=== PATIENT | female | born 1995 ===

== ENCOUNTER 2021-03-10 13:12 | Inpatient (IN) | payer SELFPAY ==
--- NOTE | 2021-03-10 13:32 | Emergency Department Report ---
ED Shortness of Breath HPI - General Stated Complaint: VIVI/FEVER Time Seen by Provider: 03/10/21 13:22 - History of Present Illness Initial Comments: Patient presented secondary to shortness of breath with fever. She has been sick for the last 2 to 3 days. She has shortness of breath, fever, cough, congestion, and generalized malaise. She actually passed out today and was found unresponsive. O2 saturations were in the 70s. Patient came in for james luation and treatment because of this. They have no known exposure to coronavirus. Patient has no history of recent trauma. Her is also ill with similar symptoms. - Related Data Allergies Allergy/AdvReac Type Severity Reaction Status Date / Time No Known Allergies Allergy Unverified 03/10/21 14:07 ED Review of Systems ROS: Stated complaint: VIVI/FEVER Other details as noted in HPI Comment: All other systems reviewed and negative Constitutional: no symptoms reported, chills Eyes: denies: eye pain ENT: denies: throat pain Respiratory: no symptoms reported, cough Cardiovascular: denies: chest pain Endocrine: denies: unexplained weight loss Gastrointestinal: nausea, vomiting Genitourinary: denies: dysuria Musculoskeletal: denies: back pain Skin: denies: rash Neurological: denies: headache Hematological/Lymphatic: denies: easy bruising ED Past Medical Hx - Past Medical History Previous Medical History?: No - Family History Family history: no significant ED Physical Exam - General General appearance: alert, anxious, in distress (Tachypneic with a cough) - Head Head exam: Present: atraumatic, normocephalic, normal inspection - Eye Eye exam: Present: normal appearance, EOMI. Absent: scleral icterus - ENT ENT exam: Present: normal exam, normal orophraynx, mucous membranes moist - Neck Neck exam: Present: normal inspection, full ROM. Absent: meningismus - Respiratory Respiratory exam: Present: respiratory distress (Moderate with 1-2 word dyspnea and cough), accessory muscle use - Cardiovascular Cardiovascular Exam: Present: tachycardia - GI/Abdominal GI/Abdominal exam: Present: other (Flat) - Extremities Exam Extremities exam: Present: normal inspection - Back Exam Back exam: Present: normal inspection - Neurological Exam Neurological exam: Present: alert, oriented X3 - Psychiatric Psychiatric exam: Present: anxious - Skin Skin exam: Absent: cyanosis, diaphoretic ED Course Vital Signs 03/10/21 14:05 Temperature 98.0 F Pulse Rate 104 H Respiratory 44 H Rate Blood Pressure 93/61 [Right] O2 Sat by Pulse 99 Oximetry - Reevaluation(s) Reevaluation #1: 03/10/21 13:28 Patient was seen upon arrival. She was hypoxic and tachycardic. She was in respiratory distress. Sepsis protocol and coronavirus protocols were started. Albuterol neb, 10 mg, was ordered. Patient will need admission for likely coron avirus infection. Reevaluation #2: 03/10/21 14:21 EKG was noted. ED Medical Decision Making - Lab Data Result diagrams: 03/10/21 13:34 03/10/21 13:34 - EKG Data -: EKG Interpreted by Me EKG shows normal: intervals, QRS complexes, ST-T waves Rate: tachycardia - EKG Data When compared to previous EKG there are: previous EKG unavailable Interpretation: other (EKG shows sinus tachycardia with normal intervals. There is no ST elevation to suggest infarct. There is no ST depression suggestive of ischemia.) - Radiology Data Radiology results: image reviewed - Medical Decision Making Patient presented with shortness of breath and hypoxia. She had cough and GI symptoms. This does not seem to be consistent with coronavirus infection. She is hypoxic. As far as she is aware, she had not been vaccinated and neither had her . She does have ongoing hypoxia requiring respiratory support. She will undergo further admission and treatment. Dr. Land has been notified who agrees to admit. Radiographically, there is no obvious pneumothorax. She does not have evidence of STEMI or NSTEMI. She does not have evidence of congestive heart failure. I do not believe that she would benefit from CT at this point evaluating for pulmonary embolism. Respiratory can continue their protocols to maintain oxygenation. Critical Care Time: Yes Critical care attestation.: If time is entered above; I have spent that time in minutes in the direct care of this critically ill patient, excluding procedure time. Critical Care Time: Critical care time of 45 minutes exclusive of all procedures based on hypoxia and respiratory distress with features of sepsis. This is exclusive of all procedures. ED Disposition Clinical Impression: Hypoxia, Shortness of breath Disposition: ADMITTED INPATIENT Is pt being admited?: Yes Does the pt Need Aspirin: No Condition: Serious
[2021-03-10 14:17] LABS: Hemoglobin 14.2 gm/dl (10.1-14.3); Mean Corpuscular HGB Conc 35 % (30-34); Mean Corpuscular Volume 88 fl (79-97); Platelet Count 167 K/mm3 (140-440); Red Blood Count 4.65 M/mm3 (3.65-5.03); Red Cell Distribution Width 12.6 % (13.2-15.2)
[2021-03-10 14:22] LABS: Alanine Aminotransferase 31 units/L (7-56); Albumin 3.7 g/dL (3.9-5); Blood Urea Nitrogen 7 mg/dL (7-17); Calcium 8.2 mg/dL (8.4-10.2); Hemolysis Index 45
[2021-03-10 14:33] LABS: BUN/Creatinine Ratio 18
[2021-03-10 14:39] LABS: Basophils # (Auto) 0.1 K/mm3 (0.0-0.1); Basophils % (Auto) 2.3 % (0.0-1.8); Eosinophils % (Auto) 0.1 % (0.0-4.3); Lymphocytes # (Auto) 0.4 K/mm3 (1.2-5.4); Lymphocytes % (Auto) 8.2 % (13.4-35.0); Monocytes # (Auto) 0.4 K/mm3 (0.0-0.8); Monocytes % (Auto) 7.3 % (0.0-7.3)
[2021-03-10 14:43] LABS: C-Reactive Protein 4.4 mg/dL (0.00-1.30)
[2021-03-10] MEDS ORDERED: ONDANSETRON 4 MG/2 ML INJ IV ONE (15:00)
[2021-03-10] MEDS ORDERED: ALBUTEROL 2.5 MG/3 ML NEBU IH ONE (15:00)
[2021-03-10] MEDS ORDERED: SODIUM CHLORIDE 0.9% 500 ML 1,000 ML IV ONE (15:00)
--- NOTE | 2021-03-10 15:12 | History and Physical Report ---
History of Present Illness Chief complaint: I cannot breathe History of present illness: 25 YO Female with NO PMH presents to ED for evaluation. Patient reports "I cannot breathe". Patient states that she has experienced shortness of breath, fever, dry cough, decreased exercise tolerance, malaise, body aches, over the past 3 days with persistent and worsening symptoms over the same timeframe. Patient acknowledges feeling generalized weakness and experienced an episode of syncope today. Patient transported to [facility] via private vehicle for further care and evaluation of the aforementioned symptoms. The patient was seen and evaluated in the emergency department. All lab and imaging studies reviewed. Patient found to have a pulse oximetry in the 70s on room air which is consistent with acute hypoxemic respiratory failure. Patient underwent chest x- ray which revealed bilateral pneumonia. Patient admitted to medical floor and initiated on pneumonia protocol as well as coronavirus protocol. Patient denies chills, chest pain, palpitation, productive cough, skin rash, recent ill contacts. No prior admission for review. No medication listed at time of admission for reconciliation. Past History Past Medical History: No medical history Past Surgical History: No surgical history, Other (Reviewed) Social history: , lives with family. denies: smoking, alcohol abuse, prescription drug abuse Family history: no significant family history Medications and Allergies Allergies Allergy/AdvReac Type Severity Reaction Status Date / Time No Known Allergies Allergy Unverified 03/10/21 14:07 Active Meds: Active Medications Sodium Chloride (Nacl 0.9% 500 Ml) 1,000 mls @ 999 mls/hr IV ONCE ONE Stop: 03/10/21 16:00 Review of Systems Constitutional: fever, fatigue, weakness, malaise, lethargy, no weight loss, no weight gain, no chills Ears, nose, mouth and throat: no ear pain, no tinnitis, no decreased hearing, no nasal discharge Breasts: no change in shape, no swelling, no mass Cardiovascular: no chest pain, no orthopnea, no palpitations, no rapid/irregular heart beat, no syncope Respiratory: cough, shortness of breath Gastrointestinal: no abdominal pain, no nausea, no vomiting, no diarrhea Genitourinary Female: no pelvic pain, no flank pain, no dysuria, no urinary frequency, no urgency Rectal: no pain, no incontinence, no bleeding Musculoskeletal: no neck stiffness, no neck pain, no arm numbness/tingling, no low back pain, no redness of joints Integumentary: no rash, no sores, no jaundice, no blisters Neurological: no head injury, no paralysis, no weakness, no seizures, no syncope Psychiatric: no anxiety, no change in sleep habits, no hypersomnia, no change in appetite, no suicidal ideation Endocrine: no cold intolerance, no excessive thirst, no polydipsia, no polyuria, no flushing Hematologic/Lymphatic: no easy bruising, no lymphadenopathy Allergic/Immunologic: no allergic rhinitis, no persistent infections, no angioedema Exam - Constitutional Vitals: Temp Pulse Resp BP Pulse Ox 98.0 F 104 H 44 H 93/61 99 03/10/21 14:05 03/10/21 14:05 03/10/21 14:05 03/10/21 14:05 03/10/21 14:05 General appearance: Present: mild distress - EENT Eyes: Present: PERRL ENT: hearing intact, clear oral mucosa - Neck Neck: Present: supple, normal ROM - Respiratory Respiratory effort: normal, labored, accessory muscle use Respiratory: bilateral: diminished, rhonchi - Cardiovascular Heart Sounds: Present: S1 & S2. Absent: rub, click - Extremities Extremities: pulses symmetrical, No edema Peripheral Pulses: within normal limits - Abdominal General gastrointestinal: Present: soft, non-tender, non-distended, normal bowel sounds Female genitourinary: Present: normal - Integumentary Integumentary: Present: clear, warm, dry - Musculoskeletal Musculoskeletal: gait normal, strength equal bilaterally - Psychiatric Psychiatric: appropriate mood/affect, intact judgment & insight - Neurologic Neurologic: CNII-XII intact, moves all extremities HEART Score - HEART Score Troponin: Troponin T < 0.010 ng/mL (0.00-0.029) 03/10/21 13:34 Results - Labs CBC & Chem 7: 03/10/21 13:34 03/10/21 13:34 Labs: Abnormal lab results 03/10/21 03/10/21 03/10/21 Range/Units 13:34 13:34 13:34 MCHC 35 H (30-34) % RDW 12.6 L (13.2-15.2) % Lymph % (Auto) 8.2 L (13.4-35.0) % Baso % (Auto) 2.3 H (0.0-1.8) % Lymph # (Auto) 0.4 L (1.2-5.4) K/mm3 Seg Neutrophils % 82.1 H (40.0-70.0) % D-Dimer 465.09 H (0-234) ng/mlDDU Sodium 134 L (137-145) mmol/L Creatinine 0.4 L (0.6-1.2) mg/dL Glucose 118 H (65-100) mg/dL Calcium 8.2 L (8.4-10.2) mg/dL Ferritin (10.0-200.0) ng/mL AST 55 H (5-40) units/L Lactate Dehydrogenase 602 H (91-180) units/L C-Reactive Protein 4.40 H (0.00-1.30) mg/dL Albumin 3.7 L (3.9-5) g/dL 03/10/21 03/10/21 Range/Units 13:34 13:34 MCHC (30-34) % RDW (13.2-15.2) % Lymph % (Auto) (13.4-35.0) % Baso % (Auto) (0.0-1.8) % Lymph # (Auto) (1.2-5.4) K/mm3 Seg Neutrophils % (40.0-70.0) % D-Dimer (0-234) ng/mlDDU Sodium (137-145) mmol/L Creatinine (0.6-1.2) mg/dL Glucose 115 H (65-100) mg/dL Calcium (8.4-10.2) mg/dL Ferritin 448.0 H (10.0-200.0) ng/mL AST (5-40) units/L Lactate Dehydrogenase 539 H (91-180) units/L C-Reactive Protein 4.40 H (0.00-1.30) mg/dL Albumin (3.9-5) g/dL Assessment and Plan - Patient Problems (1) Acute respiratory failure Current Visit: Yes Status: Acute Qualifiers: Respiratory failure complication: hypoxia Qualified Code(s): J96.01 - Acute respiratory failure with hypoxia Plan to address problem: Chest x-ray, supplemental oxygen, pulse oximetry, nebulizer therapy, pulmonary toilet. (2) Pneumonia Current Visit: Yes Status: Acute Plan to address problem: Pneumonia protocol: Chest x-ray, CBC, CMP, IV antibiotic therapy, supplemental oxygen, pulse oximetry, nebulizer therapy, blood culture. (3) Suspected 2019 novel coronavirus infection Current Visit: Yes Status: Acute Plan to address problem: Coronavirus protocol: Contact precautions, isolation precautions, IV steroid therapy, IV antibiotic therapy, vitamin C therapy, vitamin D therapy, zinc therapy, prophylactic anticoagulation, prone positioning while in bed. (4) DVT prophylaxis Current Visit: Yes Status: Acute Plan to address problem: SCD to bilateral lower extremities while in bed, prophylactic anticoagulation
[2021-03-10] MEDS ORDERED: dexAMETHasone 20 MG/5 ML VIAL IV ONE (15:15)
--- NOTE | 2021-03-10 15:17 | XRay Report ---
CHEST 1 VIEW 03/10/2021 2:10 PM INDICATION / CLINICAL INFORMATION: hypoxia, covid. COMPARISON: None available. FINDINGS: SUPPORT DEVICES: None. HEART / MEDIASTINUM: No significant abnormality. LUNGS / PLEURA: Mild patchy bilateral opacities. No pneumothorax. ADDITIONAL FINDINGS: No significant additional findings. IMPRESSION: 1. Mild patchy bilateral pulmonary opacities likely indicating multifocal pneumonia. Signer Name: Flakito Law MD Signed: 03/10/2021 3:12 PM Workstation Name: [id number]
[2021-03-10] MEDS ORDERED: ONDANSETRON 4 MG/2 ML INJ IV PRN (16:00)
[2021-03-10] MEDS ORDERED: ALBUTEROL 2.5 MG/3 ML NEBU IH PRN (16:00)
[2021-03-10] MEDS ORDERED: HYDROmorphone 1 MG/1 ML INJ IV PRN (16:00)
[2021-03-10] MEDS ORDERED: ACETAMINOPHEN 325 MG TAB PO PRN (16:00)
[2021-03-10] MEDS: AZITHROMYCIN/NS 500 MG/250 ML 500 MG/250 ML BAG IV SCH (20:01)
[2021-03-10] MEDS: cefTRIAXone/NS 2 GM/100 ML 2 GM/100 ML BAG IV SCH (20:01)
[2021-03-10] MEDS: HEPARIN 5,000 UNIT/1 ML VIAL SUB-Q SCH (22:56)
[2021-03-10] MEDS: ZINC SULFATE 220 MG CAP PO SCH (22:57)
[2021-03-10] MEDS: methylPREDNISolone Sod Succinate 40 MG/1 ML INJ IV SCH (22:57)
[2021-03-10] MEDS: ASCORBIC ACID 500 MG TAB PO SCH (22:57)
[2021-03-11 06:35] LABS: Basophils % (Auto) 0.3 % (0.0-1.8); Hemoglobin 13.3 gm/dl (10.1-14.3); Lymphocytes # (Auto) 0.5 K/mm3 (1.2-5.4); Lymphocytes % (Auto) 20.3 % (13.4-35.0); Mean Corpuscular HGB Conc 36 % (30-34); Mean Corpuscular Volume 87 fl (79-97); Monocytes # (Auto) 0.2 K/mm3 (0.0-0.8); Monocytes % (Auto) 8.3 % (0.0-7.3); Platelet Count 191 K/mm3 (140-440); Red Blood Count 4.24 M/mm3 (3.65-5.03); Red Cell Distribution Width 12.7 % (13.2-15.2)
[2021-03-11 06:54] LABS: Blood Urea Nitrogen 6 mg/dL (7-17); Hemolysis Index 3
[2021-03-11] MEDS: methylPREDNISolone Sod Succinate 40 MG/1 ML INJ IV SCH ×3 (06:54→22:00)
[2021-03-11 07:03] LABS: BUN/Creatinine Ratio 15
[2021-03-11] MEDS: ASCORBIC ACID 500 MG TAB PO SCH ×2 (09:53→22:01)
[2021-03-11] MEDS: CHOLECALCIFEROL (VIT D3) 1000 UNIT (25 mcg) TAB PO SCH (09:54)
[2021-03-11] MEDS: ZINC SULFATE 220 MG CAP PO SCH ×2 (09:54→22:01)
[2021-03-11] MEDS: HEPARIN 5,000 UNIT/1 ML VIAL SUB-Q SCH ×2 (09:55→22:00)
[2021-03-11] MEDS ORDERED: CHOLECALCIFEROL (VIT D3) 400 UNIT TAB PO SCH (10:00)
--- NOTE | 2021-03-11 10:10 | Electrocardiograph Report ---
[facility] Test Date: 2021-03-10 Test Time: 13:40:55 Pat Name: DILEEP TURPIN Department: Room: A380 Gender: F Addiction Social Worker: EDGARD : 1995 Requested By: KERVIN BECKER Order Number: [id number] Reading MD: Josephine Geller Measurements Intervals [place] Rate: 109 P: 58 NH: 190 QRS: 13 QRSD: 75 T: 16 QT: 302 QTc: 408 Interpretive Statements Sinus tachycardia Probable left atrial enlargement Low voltage, precordial leads No previous ECG available for comparison Electronically Signed On 03-11-2021 10:10:37 EDT by Josephine Geller
[2021-03-11 13:42] LABS: Bilirubin,Urine NEG (Negative); Blood,Urine MOD (Negative); Color,Urine Yellow (Yellow); Mucus,Urine FEW /HPF
[2021-03-11] MEDS: AZITHROMYCIN/NS 500 MG/250 ML 500 MG/250 ML BAG IV SCH (17:03)
[2021-03-11] MEDS: cefTRIAXone/NS 2 GM/100 ML 2 GM/100 ML BAG IV SCH (17:05)
--- NOTE | 2021-03-11 20:57 | Progress Note ---
Assessment and Plan - Patient Problems (1) Acute respiratory failure Current Visit: Yes Status: Acute Qualifiers: Respiratory failure complication: hypoxia Qualified Code(s): J96.01 - Acute respiratory failure with hypoxia Plan to address problem: Chest x-ray, supplemental oxygen, pulse oximetry, nebulizer therapy, pulmonary toilet. (2) Pneumonia Current Visit: Yes Status: Acute Plan to address problem: Pneumonia protocol: Chest x-ray, CBC, CMP, IV antibiotic therapy, supplemental oxygen, pulse oximetry, nebulizer therapy, blood culture. (3) Suspected 2019 novel coronavirus infection Current Visit: Yes Status: Acute Plan to address problem: Coronavirus protocol: Contact precautions, isolation precautions, IV steroid therapy, IV antibiotic therapy, vitamin C therapy, vitamin D therapy, zinc therapy, prophylactic anticoagulation, prone positioning while in bed. (4) DVT prophylaxis Current Visit: Yes Status: Acute Plan to address problem: SCD to bilateral lower extremities while in bed, prophylactic anticoagulation History Interval history: 25 YO Female HD #2 with Acute Respiratory Failure, Pneumonia, Suspected Coronavirus infection. Patient resting comfortably in bed. No reported nursing events. Patient denies pain. Hospitalist Physical - Constitutional Vitals: Temp Pulse Resp BP Pulse Ox 98.3 F 77 22 104/61 89 03/11/21 17:58 03/11/21 17:58 03/11/21 17:58 03/11/21 17:58 03/11/21 17:58 General appearance: Present: mild distress, obese - EENT Eyes: Present: PERRL, EOM intact ENT: hearing intact - Neck Neck: Present: supple - Respiratory Respiratory: bilateral: diminished, rhonchi - Cardiovascular Rhythm: regular Heart Sounds: Present: S1 & S2 - Extremities Extremities: no ischemia Peripheral Pulses: within normal limits - Abdominal General gastrointestinal: soft, non-tender, non-distended - Integumentary Integumentary: Present: clear, dry - Psychiatric Psychiatric: appropriate mood/affect, cooperative - Neurologic Neurologic: CNII-XII intact HEART Score - HEART Score Troponin: Troponin T < 0.010 ng/mL (0.00-0.029) 03/10/21 13:34 Results - Labs CBC & Chem 7: 03/11/21 05:22 03/11/21 05:22 Labs: Laboratory Last Values WBC 2.4 K/mm3 (4.5-11.0) L 03/11/21 05:22 RBC 4.24 M/mm3 (3.65-5.03) 03/11/21 05:22 Hgb 13.3 gm/dl (10.1-14.3) 03/11/21 05:22 Hct 37.0 % (30.3-42.9) 03/11/21 05:22 MCV 87 fl (79-97) 03/11/21 05:22 MCH 31 pg (28-32) 03/11/21 05:22 MCHC 36 % (30-34) H 03/11/21 05:22 RDW 12.7 % (13.2-15.2) L 03/11/21 05:22 Plt Count 191 K/mm3 (140-440) 03/11/21 05:22 Lymph % (Auto) 20.3 % (13.4-35.0) 03/11/21 05:22 [place] % (Auto) 8.3 % (0.0-7.3) H 03/11/21 05:22 Eos % (Auto) 0.0 % (0.0-4.3) 03/11/21 05:22 Baso % (Auto) 0.3 % (0.0-1.8) 03/11/21 05:22 Lymph # (Auto) 0.5 K/mm3 (1.2-5.4) L 03/11/21 05:22 [place] # (Auto) 0.2 K/mm3 (0.0-0.8) 03/11/21 05:22 Eos # (Auto) 0.0 K/mm3 (0.0-0.4) 03/11/21 05:22 Baso # (Auto) 0.0 K/mm3 (0.0-0.1) 03/11/21 05:22 Seg Neutrophils % 71.1 % (40.0-70.0) H 03/11/21 05:22 Nucleated RBC % Not Reportable 03/10/21 13:34 Seg Neutrophils # 1.7 K/mm3 (1.8-7.7) L 03/11/21 05:22 WBC Morphology Not Reportable 03/10/21 13:34 Hypersegmented Neuts Not Reportable 03/10/21 13:34 Hyposegmented Neuts Not Reportable 03/10/21 13:34 Hypogranular Neuts Not Reportable 03/10/21 13:34 Smudge Cells Not Reportable 03/10/21 13:34 Toxic Granulation Not Reportable 03/10/21 13:34 Toxic Vacuolation Not Reportable 03/10/21 13:34 Dohle Bodies Not Reportable 03/10/21 13:34 Pelger-Huet Anomaly Not Reportable 03/10/21 13:34 Nicola Rods Not Reportable 03/10/21 13:34 Platelet Estimate Not Reportable 03/10/21 13:34 Clumped Platelets Not Reportable 03/10/21 13:34 Plt Clumps, EDTA Not Reportable 03/10/21 13:34 Large Platelets Not Reportable 03/10/21 13:34 Giant Platelets Not Reportable 03/10/21 13:34 Platelet Satelliting Not Reportable 03/10/21 13:34 Plt Morphology Comment Not Reportable 03/10/21 13:34 RBC Morphology Not Reportable 03/10/21 13:34 Dimorphic RBCs Not Reportable 03/10/21 13:34 Polychromasia Not Reportable 03/10/21 13:34 Hypochromasia Not Reportable 03/10/21 13:34 Poikilocytosis Not Reportable 03/10/21 13:34 Anisocytosis Not Reportable 03/10/21 13:34 Microcytosis Not Reportable 03/10/21 13:34 Macrocytosis Not Reportable 03/10/21 13:34 Spherocytes Not Reportable 03/10/21 13:34 Pappenheimer Bodies Not Reportable 03/10/21 13:34 Sickle Cells Not Reportable 03/10/21 13:34 Target Cells Not Reportable 03/10/21 13:34 Tear Drop Cells Not Reportable 03/10/21 13:34 Ovalocytes Not Reportable 03/10/21 13:34 Helmet Cells Not Reportable 03/10/21 13:34 Lombardi-[place] Bodies Not Reportable 03/10/21 13:34 [place] Rings Not Reportable 03/10/21 13:34 Stoney Cells Not Reportable 03/10/21 13:34 Bite Cells Not Reportable 03/10/21 13:34 Crenated Cell Not Reportable 03/10/21 13:34 Elliptocytes Not Reportable 03/10/21 13:34 Acanthocytes (Spur) Not Reportable 03/10/21 13:34 Rouleaux Not Reportable 03/10/21 13:34 Hemoglobin C Crystals Not Reportable 03/10/21 13:34 Schistocytes Not Reportable 03/10/21 13:34 Malaria parasites Not Reportable 03/10/21 13:34 Malachi Bodies Not Reportable 03/10/21 13:34 Hem Pathologist Commnt Not Reportable 03/10/21 13:34 D-Dimer 465.09 ng/mlDDU (0-234) H 03/10/21 13:34 Sodium 141 mmol/L (137-145) D 03/11/21 05:22 Potassium 4.2 mmol/L (3.6-5.0) 03/11/21 05:22 Chloride 106.5 mmol/L (98-107) 03/11/21 05:22 Carbon Dioxide 24 mmol/L (22-30) 03/11/21 05:22 Anion Gap 15 mmol/L 03/11/21 05:22 BUN 6 mg/dL (7-17) L 03/11/21 05:22 Creatinine 0.4 mg/dL (0.6-1.2) L 03/11/21 05:22 Estimated GFR > 60 ml/min 03/11/21 05:22 BUN/Creatinine Ratio 15 % 03/11/21 05:22 Glucose 159 mg/dL (65-100) H 03/11/21 05:22 Lactic Acid 1.00 mmol/L (0.7-2.0) 03/10/21 16:17 Calcium 9.0 mg/dL (8.4-10.2) 03/11/21 05:22 Ferritin 448.0 ng/mL (10.0-200.0) H 03/10/21 13:34 Total Bilirubin 0.50 mg/dL (0.1-1.2) 03/10/21 13:34 AST 55 units/L (5-40) H 03/10/21 13:34 ALT 31 units/L (7-56) 03/10/21 13:34 Alkaline Phosphatase 125 units/L (35-129) 03/10/21 13:34 Lactate Dehydrogenase 539 units/L (91-180) H 03/10/21 13:34 Lactate Dehydrogenase 602 units/L (91-180) H 03/10/21 13:34 Troponin T < 0.010 ng/mL (0.00-0.029) 03/10/21 13:34 C-Reactive Protein 4.40 mg/dL (0.00-1.30) H 03/10/21 13:34 C-Reactive Protein 4.40 mg/dL (0.00-1.30) H 03/10/21 13:34 Total Protein 7.6 g/dL (6.3-8.2) 03/10/21 13:34 Albumin 3.7 g/dL (3.9-5) L 03/10/21 13:34 Albumin/Globulin Ratio 0.9 % 03/10/21 13:34 Procalcitonin 0.11 ng/mL (<0.15) 03/10/21 13:34 Urine Color Yellow (Yellow) 03/11/21 12:25 Urine Turbidity Clear (Clear) 03/11/21 12:25 Urine pH 6.0 (5.0-7.0) 03/11/21 12:25 Ur Specific [place] 1.019 (1.003-1.030) 03/11/21 12:25 Urine Protein 30 mg/dl mg/dL (Negative) 03/11/21 12:25 Urine Glucose (UA) Neg mg/dL (Negative) 03/11/21 12:25 Urine Ketones Neg mg/dL (Negative) 03/11/21 12:25 Urine Blood Mod (Negative) 03/11/21 12:25 Urine Nitrite Neg (Negative) 03/11/21 12:25 Urine Bilirubin Neg (Negative) 03/11/21 12:25 Urine Urobilinogen 4.0 mg/dL (<2.0) 03/11/21 12:25 Ur Leukocyte Esterase Neg (Negative) 03/11/21 12:25 Urine WBC (Auto) 2.0 /HPF (0.0-6.0) 03/11/21 12:25 Urine RBC (Auto) 47.0 /HPF (0.0-6.0) 03/11/21 12:25 U Epithel Cells (Auto) < 1.0 /HPF (0-13.0) 03/11/21 12:25 Urine Mucus Few /HPF 03/11/21 12:25 Microbiology: Microbiology 03/10/21 13:41 Peripheral/Venous Blood Culture - Preliminary NO GROWTH AFTER 24 HOURS 03/10/21 13:34 Peripheral/Venous Blood Culture - Preliminary NO GROWTH AFTER 24 HOURS Sheikh/IV: Voiding Method Toilet Active Medications - Current Medications Current Medications: Generic Name Dose Route Start Last Admin Trade Name Freq PRN Reason Stop Dose Admin Acetaminophen 650 mg 03/10/21 16:00 Acetaminophen 325 Mg Tab PO Q4H PRN Pain MILD(1-3)/Fever >100.5/LEE Albuterol 2.5 mg 03/10/21 16:00 Albuterol 2.5 Mg/3 Ml Nebu IH Q4HRT PRN Shortness Of Breath Ascorbic Acid 500 mg 03/10/21 22:00 03/11/21 09:53 Ascorbic Acid 500 Mg Tab PO 500 mg BID NYDIA Administration Cholecalciferol 1,000 unit 03/11/21 10:00 03/11/21 09:54 Cholecalciferol (Vit D3) 1000 Unit (25 Mcg) Tab PO 1,000 unit DAILY NYDIA Administration Heparin Sodium (Porcine) 5,000 unit 03/10/21 22:00 03/11/21 09:55 Heparin 5,000 Unit/1 Ml Vial SUB-Q 5,000 unit Q12HR NYDIA Administration Hydromorphone HCl 0.5 mg 03/10/21 16:00 Hydromorphone 1 Mg/1 Ml Inj IV Q24H PRN Pain , Severe (7-10) Ceftriaxone Sodium 2 gm in 100 mls @ 200 mls/hr 03/10/21 17:00 03/11/21 17:05 Rocephin/Ns 2 Gm/100 Ml IV 03/14/21 17:29 200 mls/hr Q24H NYDIA Administration Protocol Azithromycin 500 mg in 250 mls @ 250 mls/hr 03/10/21 16:00 03/11/21 17:03 Zithromax/Ns IV 03/14/21 16:59 250 mls/hr Q24H NYDIA Administration Protocol Methylprednisolone Sodium Succinate 40 mg 03/10/21 22:00 03/11/21 14:50 Methylprednisolone Sod Succinate 40 Mg/1 Ml Inj IV 40 mg Q8HR NYDIA Administration Ondansetron HCl 4 mg 03/10/21 16:00 Ondansetron 4 Mg/2 Ml Inj IV Q8H PRN Nausea And Vomiting Oxycodone/Acetaminophen 1 tab 03/10/21 16:00 Oxycodone /Acetaminophen 5-325mg Tab PO Q12H PRN Pain, Moderate (4-6) Sodium Chloride 10 ml 03/10/21 22:00 03/11/21 09:54 Sodium Chloride 0.9% 10 Ml Flush Syringe IV 10 ml BID NYDIA Administration Sodium Chloride 10 ml 03/10/21 16:00 Sodium Chloride 0.9% 10 Ml Flush Syringe IV PRN PRN LINE FLUSH Zinc Sulfate 220 mg 03/10/21 22:00 03/11/21 09:54 Zinc Sulfate 220 Mg Cap PO 220 mg BID NYDIA Administration
[2021-03-12] MEDS: methylPREDNISolone Sod Succinate 40 MG/1 ML INJ IV SCH ×3 (06:15→21:13)
[2021-03-12] MEDS: ZINC SULFATE 220 MG CAP PO SCH ×2 (12:24→21:13)
[2021-03-12] MEDS: ASCORBIC ACID 500 MG TAB PO SCH ×2 (12:24→21:13)
[2021-03-12] MEDS: HEPARIN 5,000 UNIT/1 ML VIAL SUB-Q SCH ×2 (12:25→21:14)
[2021-03-12] MEDS: oxyCODONE /ACETAMINOPHEN 5-325MG TAB PO PRN (12:26)
[2021-03-12] MEDS: CHOLECALCIFEROL (VIT D3) 1000 UNIT (25 mcg) TAB PO SCH (12:26)
[2021-03-12] MEDS: cefTRIAXone/NS 2 GM/100 ML 2 GM/100 ML BAG IV SCH (18:00)
[2021-03-12] MEDS: AZITHROMYCIN/NS 500 MG/250 ML 500 MG/250 ML BAG IV SCH (20:00)
[2021-03-13] MEDS: methylPREDNISolone Sod Succinate 40 MG/1 ML INJ IV SCH ×3 (05:52→22:24)
[2021-03-13] MEDS: HEPARIN 5,000 UNIT/1 ML VIAL SUB-Q SCH ×2 (09:26→22:25)
[2021-03-13] MEDS: ZINC SULFATE 220 MG CAP PO SCH ×2 (09:26→22:24)
[2021-03-13] MEDS: ASCORBIC ACID 500 MG TAB PO SCH ×2 (09:26→22:25)
[2021-03-13] MEDS: CHOLECALCIFEROL (VIT D3) 1000 UNIT (25 mcg) TAB PO SCH (09:26)
--- NOTE | 2021-03-13 12:47 | Progress Note ---
Assessment and Plan - Patient Problems (1) Acute respiratory failure Current Visit: Yes Status: Acute Qualifiers: Respiratory failure complication: hypoxia Qualified Code(s): J96.01 - Acute respiratory failure with hypoxia Plan to address problem: Chest x-ray, supplemental oxygen, pulse oximetry, nebulizer therapy, pulmonary toilet. ambulatory oxygen saturation. (2) Pneumonia Current Visit: Yes Status: Acute Plan to address problem: Pneumonia protocol: Chest x-ray, CBC, CMP, IV antibiotic therapy, supplemental oxygen, pulse oximetry, nebulizer therapy, blood culture. (3) Suspected 2019 novel coronavirus infection Current Visit: Yes Status: Acute Plan to address problem: Coronavirus protocol: Contact precautions, isolation precautions, IV steroid therapy, IV antibiotic therapy, vitamin C therapy, vitamin D therapy, zinc therapy, prophylactic anticoagulation, prone positioning while in bed. (4) DVT prophylaxis Current Visit: Yes Status: Acute Plan to address problem: SCD to bilateral lower extremities while in bed, prophylactic anticoagulation History Interval history: 25 YO Female HD #3 with Acute Respiratory Failure, Pneumonia, Suspected [place] virus infection. Patient resting comfortably in bed. No reported nursing events. Patient denies pain. Hospitalist Physical - Constitutional Vitals: Temp Pulse Resp BP Pulse Ox 98.1 F 60 20 100/57 94 03/13/21 04:38 03/13/21 04:38 03/13/21 07:00 03/13/21 04:38 03/13/21 07:00 General appearance: Present: mild distress, obese - EENT Eyes: Present: PERRL, EOM intact - Neck Neck: Present: supple - Respiratory Respiratory effort: labored Respiratory: bilateral: diminished, rhonchi - Cardiovascular Rhythm: regular Heart Sounds: Present: S1 & S2 - Extremities Extremities: no ischemia Peripheral Pulses: within normal limits - Abdominal General gastrointestinal: soft, non-tender, non-distended - Integumentary Integumentary: Present: clear, erythema - Psychiatric Psychiatric: appropriate mood/affect, cooperative - Neurologic Neurologic: CNII-XII intact HEART Score - HEART Score Troponin: Troponin T < 0.010 ng/mL (0.00-0.029) 03/10/21 13:34 Results - Labs CBC & Chem 7: 03/11/21 05:22 03/11/21 05:22 Labs: Laboratory Last Values WBC 2.4 K/mm3 (4.5-11.0) L 03/11/21 05:22 RBC 4.24 M/mm3 (3.65-5.03) 03/11/21 05:22 Hgb 13.3 gm/dl (10.1-14.3) 03/11/21 05:22 Hct 37.0 % (30.3-42.9) 03/11/21 05:22 MCV 87 fl (79-97) 03/11/21 05:22 MCH 31 pg (28-32) 03/11/21 05:22 MCHC 36 % (30-34) H 03/11/21 05:22 RDW 12.7 % (13.2-15.2) L 03/11/21 05:22 Plt Count 191 K/mm3 (140-440) 03/11/21 05:22 Lymph % (Auto) 20.3 % (13.4-35.0) 03/11/21 05:22 [place] % (Auto) 8.3 % (0.0-7.3) H 03/11/21 05:22 Eos % (Auto) 0.0 % (0.0-4.3) 03/11/21 05:22 Baso % (Auto) 0.3 % (0.0-1.8) 03/11/21 05:22 Lymph # (Auto) 0.5 K/mm3 (1.2-5.4) L 03/11/21 05:22 [place] # (Auto) 0.2 K/mm3 (0.0-0.8) 03/11/21 05:22 Eos # (Auto) 0.0 K/mm3 (0.0-0.4) 03/11/21 05:22 Baso # (Auto) 0.0 K/mm3 (0.0-0.1) 03/11/21 05:22 Seg Neutrophils % 71.1 % (40.0-70.0) H 03/11/21 05:22 Nucleated RBC % Not Reportable 03/10/21 13:34 Seg Neutrophils # 1.7 K/mm3 (1.8-7.7) L 03/11/21 05:22 WBC Morphology Not Reportable 03/10/21 13:34 Hypersegmented Neuts Not Reportable 03/10/21 13:34 Hyposegmented Neuts Not Reportable 03/10/21 13:34 Hypogranular Neuts Not Reportable 03/10/21 13:34 Smudge Cells Not Reportable 03/10/21 13:34 Toxic Granulation Not Reportable 03/10/21 13:34 Toxic Vacuolation Not Reportable 03/10/21 13:34 Dohle Bodies Not Reportable 03/10/21 13:34 Pelger-Huet Anomaly Not Reportable 03/10/21 13:34 Nicola Rods Not Reportable 03/10/21 13:34 Platelet Estimate Not Reportable 03/10/21 13:34 Clumped Platelets Not Reportable 03/10/21 13:34 Plt Clumps, EDTA Not Reportable 03/10/21 13:34 Large Platelets Not Reportable 03/10/21 13:34 Giant Platelets Not Reportable 03/10/21 13:34 Platelet Satelliting Not Reportable 03/10/21 13:34 Plt Morphology Comment Not Reportable 03/10/21 13:34 RBC Morphology Not Reportable 03/10/21 13:34 Dimorphic RBCs Not Reportable 03/10/21 13:34 Polychromasia Not Reportable 03/10/21 13:34 Hypochromasia Not Reportable 03/10/21 13:34 Poikilocytosis Not Reportable 03/10/21 13:34 Anisocytosis Not Reportable 03/10/21 13:34 Microcytosis Not Reportable 03/10/21 13:34 Macrocytosis Not Reportable 03/10/21 13:34 Spherocytes Not Reportable 03/10/21 13:34 Pappenheimer Bodies Not Reportable 03/10/21 13:34 Sickle Cells Not Reportable 03/10/21 13:34 Target Cells Not Reportable 03/10/21 13:34 Tear Drop Cells Not Reportable 03/10/21 13:34 Ovalocytes Not Reportable 03/10/21 13:34 Helmet Cells Not Reportable 03/10/21 13:34 [place] Bodies Not Reportable 03/10/21 13:34 [place] Rings Not Reportable 03/10/21 13:34 [place] Cells Not Reportable 03/10/21 13:34 Bite Cells Not Reportable 03/10/21 13:34 Crenated Cell Not Reportable 03/10/21 13:34 Elliptocytes Not Reportable 03/10/21 13:34 Acanthocytes (Spur) Not Reportable 03/10/21 13:34 Rouleaux Not Reportable 03/10/21 13:34 Hemoglobin C Crystals Not Reportable 03/10/21 13:34 Schistocytes Not Reportable 03/10/21 13:34 Malaria parasites Not Reportable 03/10/21 13:34 Malachi Bodies Not Reportable 03/10/21 13:34 Hem Pathologist Commnt Not Reportable 03/10/21 13:34 D-Dimer 465.09 ng/mlDDU (0-234) H 03/10/21 13:34 Sodium 141 mmol/L (137-145) D 03/11/21 05:22 Potassium 4.2 mmol/L (3.6-5.0) 03/11/21 05:22 Chloride 106.5 mmol/L (98-107) 03/11/21 05:22 Carbon Dioxide 24 mmol/L (22-30) 03/11/21 05:22 Anion Gap 15 mmol/L 03/11/21 05:22 BUN 6 mg/dL (7-17) L 03/11/21 05:22 Creatinine 0.4 mg/dL (0.6-1.2) L 03/11/21 05:22 Estimated GFR > 60 ml/min 03/11/21 05:22 BUN/Creatinine Ratio 15 % 03/11/21 05:22 Glucose 159 mg/dL (65-100) H 03/11/21 05:22 Lactic Acid 1.00 mmol/L (0.7-2.0) 03/10/21 16:17 Calcium 9.0 mg/dL (8.4-10.2) 03/11/21 05:22 Ferritin 448.0 ng/mL (10.0-200.0) H 03/10/21 13:34 Total Bilirubin 0.50 mg/dL (0.1-1.2) 03/10/21 13:34 AST 55 units/L (5-40) H 03/10/21 13:34 ALT 31 units/L (7-56) 03/10/21 13:34 Alkaline Phosphatase 125 units/L (35-129) 03/10/21 13:34 Lactate Dehydrogenase 539 units/L (91-180) H 03/10/21 13:34 Lactate Dehydrogenase 602 units/L (91-180) H 03/10/21 13:34 Troponin T < 0.010 ng/mL (0.00-0.029) 03/10/21 13:34 C-Reactive Protein 4.40 mg/dL (0.00-1.30) H 03/10/21 13:34 C-Reactive Protein 4.40 mg/dL (0.00-1.30) H 03/10/21 13:34 Total Protein 7.6 g/dL (6.3-8.2) 03/10/21 13:34 Albumin 3.7 g/dL (3.9-5) L 03/10/21 13:34 Albumin/Globulin Ratio 0.9 % 03/10/21 13:34 Procalcitonin 0.11 ng/mL (<0.15) 03/10/21 13:34 Urine Color Yellow (Yellow) 03/11/21 12:25 Urine Turbidity Clear (Clear) 03/11/21 12:25 Urine pH 6.0 (5.0-7.0) 03/11/21 12:25 Ur Specific [place] 1.019 (1.003-1.030) 03/11/21 12:25 Urine Protein 30 mg/dl mg/dL (Negative) 03/11/21 12:25 Urine Glucose (UA) Neg mg/dL (Negative) 03/11/21 12:25 Urine Ketones Neg mg/dL (Negative) 03/11/21 12:25 Urine Blood Mod (Negative) 03/11/21 12:25 Urine Nitrite Neg (Negative) 03/11/21 12:25 Urine Bilirubin Neg (Negative) 03/11/21 12:25 Urine Urobilinogen 4.0 mg/dL (<2.0) 03/11/21 12:25 Ur Leukocyte Esterase Neg (Negative) 03/11/21 12:25 Urine WBC (Auto) 2.0 /HPF (0.0-6.0) 03/11/21 12:25 Urine RBC (Auto) 47.0 /HPF (0.0-6.0) 03/11/21 12:25 U Epithel Cells (Auto) < 1.0 /HPF (0-13.0) 03/11/21 12:25 Urine Mucus Few /HPF 03/11/21 12:25 Microbiology: Microbiology 03/10/21 13:41 Peripheral/Venous Blood Culture - Preliminary NO GROWTH AFTER 48 HOURS 03/10/21 13:34 Peripheral/Venous Blood Culture - Preliminary NO GROWTH AFTER 48 HOURS Sheikh/IV: Voiding Method Toilet Active Medications - Current Medications Current Medications: Generic Name Dose Route Start Last Admin Trade Name Freq PRN Reason Stop Dose Admin Acetaminophen 650 mg 03/10/21 16:00 Acetaminophen 325 Mg Tab PO Q4H PRN Pain MILD(1-3)/Fever >100.5/LEE Albuterol 2.5 mg 03/10/21 16:00 Albuterol 2.5 Mg/3 Ml Nebu IH Q4HRT PRN Shortness Of Breath Ascorbic Acid 500 mg 03/10/21 22:00 03/13/21 09:26 Ascorbic Acid 500 Mg Tab PO 500 mg BID NYDIA Administration Cholecalciferol 1,000 unit 03/11/21 10:00 03/13/21 09:26 Cholecalciferol (Vit D3) 1000 Unit (25 Mcg) Tab PO 1,000 unit DAILY NYDIA Administration Heparin Sodium (Porcine) 5,000 unit 03/10/21 22:00 03/13/21 09:26 Heparin 5,000 Unit/1 Ml Vial SUB-Q 5,000 unit Q12HR NYDIA Administration Hydromorphone HCl 0.5 mg 03/10/21 16:00 Hydromorphone 1 Mg/1 Ml Inj IV Q24H PRN Pain , Severe (7-10) Ceftriaxone Sodium 2 gm in 100 mls @ 200 mls/hr 03/10/21 17:00 03/12/21 18:00 Rocephin/Ns 2 Gm/100 Ml IV 03/14/21 17:29 200 mls/hr Q24H NYDIA Administration Protocol Azithromycin 500 mg in 250 mls @ 250 mls/hr 03/10/21 16:00 03/12/21 20:00 Zithromax/Ns IV 03/14/21 16:59 250 mls/hr Q24H NYDIA Administration Protocol Methylprednisolone Sodium Succinate 40 mg 03/10/21 22:00 03/13/21 05:52 Methylprednisolone Sod Succinate 40 Mg/1 Ml Inj IV 40 mg Q8HR NYDIA Administration Ondansetron HCl 4 mg 03/10/21 16:00 Ondansetron 4 Mg/2 Ml Inj IV Q8H PRN Nausea And Vomiting Oxycodone/Acetaminophen 1 tab 03/10/21 16:00 03/12/21 12:26 Oxycodone /Acetaminophen 5-325mg Tab PO 1 tab Q12H PRN Administration Pain, Moderate (4-6) Sodium Chloride 10 ml 03/10/21 22:00 03/13/21 09:26 Sodium Chloride 0.9% 10 Ml Flush Syringe IV 10 ml BID NYDIA Administration Sodium Chloride 10 ml 03/10/21 16:00 Sodium Chloride 0.9% 10 Ml Flush Syringe IV PRN PRN LINE FLUSH Zinc Sulfate 220 mg 03/10/21 22:00 03/13/21 09:26 Zinc Sulfate 220 Mg Cap PO 220 mg BID NYDIA Administration
[2021-03-13] MEDS: AZITHROMYCIN/NS 500 MG/250 ML 500 MG/250 ML BAG IV SCH (16:33)
[2021-03-13] MEDS: cefTRIAXone/NS 2 GM/100 ML 2 GM/100 ML BAG IV SCH (16:33)
[2021-03-13] MEDS: oxyCODONE /ACETAMINOPHEN 5-325MG TAB PO PRN (16:55)
[2021-03-14] MEDS: methylPREDNISolone Sod Succinate 40 MG/1 ML INJ IV SCH ×2 (05:45→14:07)
[2021-03-14] MEDS: ZINC SULFATE 220 MG CAP PO SCH (09:35)
[2021-03-14] MEDS: CHOLECALCIFEROL (VIT D3) 1000 UNIT (25 mcg) TAB PO SCH (09:35)
[2021-03-14] MEDS: ASCORBIC ACID 500 MG TAB PO SCH (09:35)
[2021-03-14] MEDS: HEPARIN 5,000 UNIT/1 ML VIAL SUB-Q SCH (09:35)
[2021-03-14 11:45] VITALS: BP 99/59
--- NOTE | 2021-03-14 12:10 | Progress Note ---
Assessment and Plan - Patient Problems (1) Acute respiratory failure Current Visit: Yes Status: Acute Qualifiers: Respiratory failure complication: hypoxia Qualified Code(s): J96.01 - Acute respiratory failure with hypoxia Plan to address problem: Chest x-ray, supplemental oxygen, pulse oximetry, nebulizer therapy, pulmonary toilet. ambulatory oxygen saturation. (2) Pneumonia Current Visit: Yes Status: Acute Plan to address problem: Pneumonia protocol: Chest x-ray, CBC, CMP, IV antibiotic therapy, supplemental oxygen, pulse oximetry, nebulizer therapy, blood culture. (3) Suspected 2019 novel coronavirus infection Current Visit: Yes Status: Acute Plan to address problem: Coronavirus protocol: Contact precautions, isolation precautions, IV steroid therapy, IV antibiotic therapy, vitamin C therapy, vitamin D therapy, zinc therapy, prophylactic anticoagulation, prone positioning while in bed. (4) DVT prophylaxis Current Visit: Yes Status: Acute Plan to address problem: SCD to bilateral lower extremities while in bed, prophylactic anticoagulation History Interval history: 25 YO Female HD #4 with Acute Respiratory Failure, Pneumonia, Suspected [place] virus infection. Patient resting comfortably in bed. No reported nursing events. Patient denies pain. Hospitalist Physical - Constitutional Vitals: Temp Pulse Resp BP Pulse Ox 97.6 F 57 L 18 99/59 92 03/14/21 11:12 03/14/21 11:12 03/14/21 11:12 03/14/21 11:12 03/14/21 11:12 General appearance: Present: mild distress, obese - EENT Eyes: Present: PERRL, EOM intact ENT: hearing intact - Neck Neck: Present: supple - Respiratory Respiratory effort: labored Respiratory: bilateral: diminished - Cardiovascular Rhythm: regular Heart Sounds: Present: S1 & S2 Peripheral Pulses: within normal limits - Abdominal General gastrointestinal: soft, non-tender, non-distended - Integumentary Integumentary: Present: clear, dry - Psychiatric Psychiatric: appropriate mood/affect - Neurologic Neurologic: CNII-XII intact HEART Score - HEART Score Troponin: Troponin T < 0.010 ng/mL (0.00-0.029) 03/10/21 13:34 Results - Labs CBC & Chem 7: 03/11/21 05:22 03/11/21 05:22 Labs: Laboratory Last Values WBC 2.4 K/mm3 (4.5-11.0) L 03/11/21 05:22 RBC 4.24 M/mm3 (3.65-5.03) 03/11/21 05:22 Hgb 13.3 gm/dl (10.1-14.3) 03/11/21 05:22 Hct 37.0 % (30.3-42.9) 03/11/21 05:22 MCV 87 fl (79-97) 03/11/21 05:22 MCH 31 pg (28-32) 03/11/21 05:22 MCHC 36 % (30-34) H 03/11/21 05:22 RDW 12.7 % (13.2-15.2) L 03/11/21 05:22 Plt Count 191 K/mm3 (140-440) 03/11/21 05:22 Lymph % (Auto) 20.3 % (13.4-35.0) 03/11/21 05:22 [place] % (Auto) 8.3 % (0.0-7.3) H 03/11/21 05:22 Eos % (Auto) 0.0 % (0.0-4.3) 03/11/21 05:22 Baso % (Auto) 0.3 % (0.0-1.8) 03/11/21 05:22 Lymph # (Auto) 0.5 K/mm3 (1.2-5.4) L 03/11/21 05:22 [place] # (Auto) 0.2 K/mm3 (0.0-0.8) 03/11/21 05:22 Eos # (Auto) 0.0 K/mm3 (0.0-0.4) 03/11/21 05:22 Baso # (Auto) 0.0 K/mm3 (0.0-0.1) 03/11/21 05:22 Seg Neutrophils % 71.1 % (40.0-70.0) H 03/11/21 05:22 Nucleated RBC % Not Reportable 03/10/21 13:34 Seg Neutrophils # 1.7 K/mm3 (1.8-7.7) L 03/11/21 05:22 WBC Morphology Not Reportable 03/10/21 13:34 Hypersegmented Neuts Not Reportable 03/10/21 13:34 Hyposegmented Neuts Not Reportable 03/10/21 13:34 Hypogranular Neuts Not Reportable 03/10/21 13:34 Smudge Cells Not Reportable 03/10/21 13:34 Toxic Granulation Not Reportable 03/10/21 13:34 Toxic Vacuolation Not Reportable 03/10/21 13:34 Dohle Bodies Not Reportable 03/10/21 13:34 Pelger-Huet Anomaly Not Reportable 03/10/21 13:34 Nicola Rods Not Reportable 03/10/21 13:34 Platelet Estimate Not Reportable 03/10/21 13:34 Clumped Platelets Not Reportable 03/10/21 13:34 Plt Clumps, EDTA Not Reportable 03/10/21 13:34 Large Platelets Not Reportable 03/10/21 13:34 Giant Platelets Not Reportable 03/10/21 13:34 Platelet Satelliting Not Reportable 03/10/21 13:34 Plt Morphology Comment Not Reportable 03/10/21 13:34 RBC Morphology Not Reportable 03/10/21 13:34 Dimorphic RBCs Not Reportable 03/10/21 13:34 Polychromasia Not Reportable 03/10/21 13:34 Hypochromasia Not Reportable 03/10/21 13:34 Poikilocytosis Not Reportable 03/10/21 13:34 Anisocytosis Not Reportable 03/10/21 13:34 Microcytosis Not Reportable 03/10/21 13:34 Macrocytosis Not Reportable 03/10/21 13:34 Spherocytes Not Reportable 03/10/21 13:34 Pappenheimer Bodies Not Reportable 03/10/21 13:34 Sickle Cells Not Reportable 03/10/21 13:34 Target Cells Not Reportable 03/10/21 13:34 Tear Drop Cells Not Reportable 03/10/21 13:34 Ovalocytes Not Reportable 03/10/21 13:34 Helmet Cells Not Reportable 03/10/21 13:34 Lombardi-[place] Bodies Not Reportable 03/10/21 13:34 [place] Rings Not Reportable 03/10/21 13:34 [place] Cells Not Reportable 03/10/21 13:34 Bite Cells Not Reportable 03/10/21 13:34 Crenated Cell Not Reportable 03/10/21 13:34 Elliptocytes Not Reportable 03/10/21 13:34 Acanthocytes (Spur) Not Reportable 03/10/21 13:34 Rouleaux Not Reportable 03/10/21 13:34 Hemoglobin C Crystals Not Reportable 03/10/21 13:34 Schistocytes Not Reportable 03/10/21 13:34 Malaria parasites Not Reportable 03/10/21 13:34 Malachi Bodies Not Reportable 03/10/21 13:34 Hem Pathologist Commnt Not Reportable 03/10/21 13:34 D-Dimer 465.09 ng/mlDDU (0-234) H 03/10/21 13:34 Sodium 141 mmol/L (137-145) D 03/11/21 05:22 Potassium 4.2 mmol/L (3.6-5.0) 03/11/21 05:22 Chloride 106.5 mmol/L (98-107) 03/11/21 05:22 Carbon Dioxide 24 mmol/L (22-30) 03/11/21 05:22 Anion Gap 15 mmol/L 03/11/21 05:22 BUN 6 mg/dL (7-17) L 03/11/21 05:22 Creatinine 0.4 mg/dL (0.6-1.2) L 03/11/21 05:22 Estimated GFR > 60 ml/min 03/11/21 05:22 BUN/Creatinine Ratio 15 % 03/11/21 05:22 Glucose 159 mg/dL (65-100) H 03/11/21 05:22 Lactic Acid 1.00 mmol/L (0.7-2.0) 03/10/21 16:17 Calcium 9.0 mg/dL (8.4-10.2) 03/11/21 05:22 Ferritin 448.0 ng/mL (10.0-200.0) H 03/10/21 13:34 Total Bilirubin 0.50 mg/dL (0.1-1.2) 03/10/21 13:34 AST 55 units/L (5-40) H 03/10/21 13:34 ALT 31 units/L (7-56) 03/10/21 13:34 Alkaline Phosphatase 125 units/L (35-129) 03/10/21 13:34 Lactate Dehydrogenase 539 units/L (91-180) H 03/10/21 13:34 Lactate Dehydrogenase 602 units/L (91-180) H 03/10/21 13:34 Troponin T < 0.010 ng/mL (0.00-0.029) 03/10/21 13:34 C-Reactive Protein 4.40 mg/dL (0.00-1.30) H 03/10/21 13:34 C-Reactive Protein 4.40 mg/dL (0.00-1.30) H 03/10/21 13:34 Total Protein 7.6 g/dL (6.3-8.2) 03/10/21 13:34 Albumin 3.7 g/dL (3.9-5) L 03/10/21 13:34 Albumin/Globulin Ratio 0.9 % 03/10/21 13:34 Procalcitonin 0.11 ng/mL (<0.15) 03/10/21 13:34 Urine Color Yellow (Yellow) 03/11/21 12:25 Urine Turbidity Clear (Clear) 03/11/21 12:25 Urine pH 6.0 (5.0-7.0) 03/11/21 12:25 Ur Specific [place] 1.019 (1.003-1.030) 03/11/21 12:25 Urine Protein 30 mg/dl mg/dL (Negative) 03/11/21 12:25 Urine Glucose (UA) Neg mg/dL (Negative) 03/11/21 12:25 Urine Ketones Neg mg/dL (Negative) 03/11/21 12:25 Urine Blood Mod (Negative) 03/11/21 12:25 Urine Nitrite Neg (Negative) 03/11/21 12:25 Urine Bilirubin Neg (Negative) 03/11/21 12:25 Urine Urobilinogen 4.0 mg/dL (<2.0) 03/11/21 12:25 Ur Leukocyte Esterase Neg (Negative) 03/11/21 12:25 Urine WBC (Auto) 2.0 /HPF (0.0-6.0) 03/11/21 12:25 Urine RBC (Auto) 47.0 /HPF (0.0-6.0) 03/11/21 12:25 U Epithel Cells (Auto) < 1.0 /HPF (0-13.0) 03/11/21 12:25 Urine Mucus Few /HPF 03/11/21 12:25 Microbiology: Microbiology 03/10/21 13:41 Peripheral/Venous Blood Culture - Preliminary NO GROWTH AFTER 72 HOURS 03/10/21 13:34 Peripheral/Venous Blood Culture - Preliminary NO GROWTH AFTER 72 HOURS Sheikh/IV: Voiding Method Toilet Active Medications - Current Medications Current Medications: Generic Name Dose Route Start Last Admin Trade Name Freq PRN Reason Stop Dose Admin Acetaminophen 650 mg 03/10/21 16:00 Acetaminophen 325 Mg Tab PO Q4H PRN Pain MILD(1-3)/Fever >100.5/LEE Albuterol 2.5 mg 03/10/21 16:00 Albuterol 2.5 Mg/3 Ml Nebu IH Q4HRT PRN Shortness Of Breath Ascorbic Acid 500 mg 03/10/21 22:00 03/14/21 09:35 Ascorbic Acid 500 Mg Tab PO 500 mg BID NYDIA Administration Cholecalciferol 1,000 unit 03/11/21 10:00 03/14/21 09:35 Cholecalciferol (Vit D3) 1000 Unit (25 Mcg) Tab PO 1,000 unit DAILY NYDIA Administration Heparin Sodium (Porcine) 5,000 unit 03/10/21 22:00 03/14/21 09:35 Heparin 5,000 Unit/1 Ml Vial SUB-Q 5,000 unit Q12HR NYDIA Administration Hydromorphone HCl 0.5 mg 03/10/21 16:00 Hydromorphone 1 Mg/1 Ml Inj IV Q24H PRN Pain , Severe (7-10) Ceftriaxone Sodium 2 gm in 100 mls @ 200 mls/hr 03/10/21 17:00 03/13/21 16:33 Rocephin/Ns 2 Gm/100 Ml IV 03/14/21 17:29 200 mls/hr Q24H NYDIA Administration Protocol Azithromycin 500 mg in 250 mls @ 250 mls/hr 03/10/21 16:00 03/13/21 16:33 Zithromax/Ns IV 03/14/21 16:59 250 mls/hr Q24H NYDIA Administration Protocol Methylprednisolone Sodium Succinate 40 mg 03/10/21 22:00 03/14/21 05:45 Methylprednisolone Sod Succinate 40 Mg/1 Ml Inj IV 40 mg Q8HR NYDIA Administration Ondansetron HCl 4 mg 03/10/21 16:00 Ondansetron 4 Mg/2 Ml Inj IV Q8H PRN Nausea And Vomiting Oxycodone/Acetaminophen 1 tab 03/10/21 16:00 03/13/21 16:55 Oxycodone /Acetaminophen 5-325mg Tab PO 1 tab Q12H PRN Administration Pain, Moderate (4-6) Sodium Chloride 10 ml 03/10/21 22:00 03/14/21 09:35 Sodium Chloride 0.9% 10 Ml Flush Syringe IV 10 ml BID NYDIA Administration Sodium Chloride 10 ml 03/10/21 16:00 Sodium Chloride 0.9% 10 Ml Flush Syringe IV PRN PRN LINE FLUSH Zinc Sulfate 220 mg 03/10/21 22:00 03/14/21 09:35 Zinc Sulfate 220 Mg Cap PO 220 mg BID NYDIA Administration
--- NOTE | 2021-03-14 12:45 | Discharge Summary ---
Providers - Providers Date of Admission: 03/10/21 15:12 Attending physician: ELIESER EVANS Primary care physician: DIVING JUDGE Hospitalization Condition: Serious Disposition: 30 STILL A PATIENT - Discharge Diagnoses (1) Acute respiratory failure Status: Acute Qualifiers: Respiratory failure complication: hypoxia Qualified Code(s): J96.01 - Acute respiratory failure with hypoxia (2) Pneumonia Status: Acute (3) Suspected 2019 novel coronavirus infection Status: Acute (4) DVT prophylaxis Status: Acute Exam - Constitutional Vitals: Temp Pulse Resp BP Pulse Ox 97.6 F 57 L 18 99/59 92 03/14/21 11:12 03/14/21 11:12 03/14/21 11:12 03/14/21 11:12 03/14/21 11:12 Plan Follow up with: PRIMARY CARE, [Primary Care Provider] - 7 Days Prescriptions: Prednisone [predniSONE 10 mg (6-Day Pack, 21 Tabs)] 10 mg PO .TAPER #1 tab.ds.pk Ascorbic Acid [Vitamin C] 1,000 mg PO DAILY #14 tablet Cholecalciferol Vit D3 [Vitamin D3 1,000 UNIT TAB] 1,000 unit PO QDAY #14 tablet Zinc Sulfate [Zinc] 220 mg PO BID #28 tablet Azithromycin [Zithromax TAB] 250 mg PO QDAY #6 tablet Other Discharge Orders: Oxygen (Amb) Location: None Selected
== END 2021-03-14 17:00 | disposition home or self-care (01) | DRG 177 ==
LOC: EDBD → ED 13:12 → 3A 15:12
PROVIDERS: ADMIT Internal Medicine; ATTEND Internal Medicine
DX: U07.1 COVID-19 (principal); J96.01 Acute respiratory failure with hypoxia; J12.82 Pneumonia due to coronavirus disease 2019
CPT/HCPCS: 36415; 71045; 80048; 80053; 81001; 82140; 82728; 82947; 83615; 84145; 84484; 85025; 85379; 86140; 87040; 93005; 94644; 94760; G0378; J0456; J0696; J1100; J1644; J2405; J2920; J7040; U0003